=== PATIENT | male | born 1990 | race Caucasian/White ===

== ENCOUNTER 2018-09-22 07:52 | Emergency (ER) | payer SELFPAY ==
[~2018-09-22] VITALS: Ht 175.3 cm; Wt 100.0 kg
[2018-09-22 08:28] VITALS: BP 109/48
== END 2018-09-22 11:24 | disposition home or self-care (01) ==
LOC: EMS 07:54 → EDBD 07:54 → EMS 11:24
DX: F10.129 Alcohol abuse with intoxication, unspecified (principal); F17.210 Nicotine dependence, cigarettes, uncomplicated; F14.90 Cocaine use, unspecified, uncomplicated; Y90.9 Presence of alcohol in blood, level not specified